=== PATIENT | female | born 1955 | race Caucasian/White ===

== ENCOUNTER → 2016-12-18 | Outpatient (CLI) | payer OTHER | LOC: MAMMO 09:09 | DX: Z12.31 Encounter for screening mammogram for malignant neoplasm of breast (principal) | CPT/HCPCS: G0202 ==

== ENCOUNTER → 2017-12-24 | Outpatient (CLI) | payer OTHER | LOC: MAMMO 08:28 | DX: Z12.31 Encounter for screening mammogram for malignant neoplasm of breast (principal) ==

== ENCOUNTER → 2018-07-01 | Outpatient (CLI) | payer OTHER | LOC: EDSTATUS 11:00 → PT 11:00 | DX: Z01.818 Encounter for other preprocedural examination (principal) ==

== ENCOUNTER 2018-08-09 11:00 | Outpatient (RCR) | payer OTHER | END 2018-08-09 11:30 | disposition home or self-care (01) | LOC: PT 11:00 | DX: Z47.89 Encounter for other orthopedic aftercare (principal) ==

== ENCOUNTER → 2019-01-05 | Outpatient (CLI) | payer OTHER | LOC: MAMMO 08:24 | DX: Z12.31 Encounter for screening mammogram for malignant neoplasm of breast (principal) ==